=== PATIENT | male | born 1945 | race Caucasian/White ===

== ENCOUNTER 2018-10-09 12:36 | Inpatient (IN) ==
[2018-10-09 13:06] LABS: Basophils % 0.3 % (0.0-0.8); Eosinophils # 0.1 10*3/uL (0.0-0.87); Eosinophils % 1.2 % (0.00-10.9); Hematocrit 23.3 VOL% (42.0-52.0); Hemoglobin 6.6 GM/DL (14.0-18.0); Immature Granulocytes % 0.4 %; Immature Granulocytes Absolute 0.03 #; Lymphocytes # 1.2 10*3/uL (1.4-4.0); Lymphocytes % 17.7 % (21.2-54.2); Mean Corpuscular HGB Conc 28.3 GM/DL (32-36); Mean Corpuscular Volume 80.9 FL (87-102); Mean Platelet Volume 9.6 FL (9.6-12.0); Monocytes % 9.4 % (1.7-12.7); Platelet Count 194 T/CUMM (130-400); Red Blood Count 2.88 MC/CUMM (3.8-5.5); Red Cell Distribution Width 15.9 % (9.3-17.3); White Blood Count 6.9 T/CUMM (4-12)
[2018-10-09 13:26] LABS: INR 1.1; PT Patient Result 11.9 SECS
[2018-10-09 13:29] LABS: Albumin 3.2 G/DL (3.4-5.0); Bilirubin,Total 0.4 MG/DL (0.2-1.0); Calcium 9.1 MG/DL (8.5-10.1)
[2018-10-09 13:34] LABS: Anisocytosis Slight; Burr Cells Slight; Eosinophils 1 % (0-10); Hypochromasia 1+; Lymphocytes 15 % (20-55); Microcytosis Slight; Platelet Estimate Normal; Polychromasia 1+; Segmented Neutrophils 77 % (50-85); Total Cells Counted 100
[2018-10-09 14:14] LABS: % Iron Saturation 4.9 % (18-50)
[2018-10-09] MEDS ORDERED: INSULIN REGULAR 100 UNIT/ML IV STA (14:14)
[2018-10-09 14:29] LABS: Folate > 24.0 NG/ML (5.4-24.0); Vitamin B12 483 PG/ML (211-911)
[2018-10-09] MEDS ORDERED: PANTOPRAZOLE 40 MG VIAL IV STA (14:56)
[2018-10-09] MEDS ORDERED: INSULIN REGULAR 100 UNIT/ML ONE (15:01)
[2018-10-09 15:56] LABS: Apearance,Urine CLEAR (Clear); Bilirubin,Urine Negative (Negative); Blood, Urine Negative (Negative); Glucose,Urine (UA) Negative (Negative); Hyaline Casts,Urine 29 /LPF (0-3); Ketones,Urine Negative (Negative); Mucus,Urine Occasional /LPF (Occasional); Nitrite,Urine Negative (Negative); Protein,Urine Negative; RBC,Urine <1 /HPF (0-4); Squamous Epithelial Cell,Urine Occasional /HPF (0-10); Urine Color Yellow (Yellow); Urine Specific Gravity 1.011 (1.001-1.035); Urine Urobilinogen < 2.0 EU/DL (0.2-1.0); WBC,Urine 1 /HPF (0-6)
[2018-10-09] MEDS ORDERED: SODIUM CHLORIDE 0.9% 1,000 ML IV PRN (15:57)
[2018-10-09] MEDS ORDERED: guaiFENesin/DM ER 600-30 MG TABLET PO PRN (15:59)
[2018-10-09] MEDS ORDERED: ONDANSETRON 4 MG/2 ML VIAL IV PRN (15:59)
[2018-10-09] MEDS ORDERED: ACETAMINOPHEN 325 MG TABLET PO PRN (15:59)
[2018-10-09] MEDS ORDERED: PROMETHAZINE 25 MG/1 ML VIAL IM PRN (15:59)
[2018-10-09] MEDS ORDERED: ZALEPLON 5 MG CAPSULE PO PRN (15:59)
[2018-10-09] MEDS ORDERED: diphenhydrAMINE CAP 25 MG CAPSULE PO SCH (16:00)
[2018-10-09] MEDS ORDERED: FUROSEMIDE 40 MG/4 ML VIAL IV SCH (16:00)
[2018-10-09 16:27] LABS: Risk Ratio 2.08; Thyroid Stimulating Hormone 0.092 uIU/ml (0.358-3.74)
[2018-10-09] MEDS: DOCUSATE SODIUM 100 MG CAPSULE PO SCH (20:23)
[2018-10-09] MEDS ORDERED: ATORVASTATIN 80 MG TABLET PO SCH (23:45)
[2018-10-09] MEDS ORDERED: CHOLECALCIFEROL 1,000 UNIT TABLET PO SCH (23:45)
[2018-10-09] MEDS ORDERED: clonazePAM 0.5 MG TABLET PO SCH (23:45)
[2018-10-10] MEDS: rOPINIRole 0.25 MG TABLET PO SCH ×4 (00:06→22:19)
[2018-10-10 05:56] LABS: Basophils % 0.2 % (0.0-0.8); Eosinophils # 0.1 10*3/uL (0.0-0.87); Eosinophils % 1.3 % (0.00-10.9); Hemoglobin 8.1 GM/DL (14.0-18.0); Immature Granulocytes % 0.4 %; Immature Granulocytes Absolute 0.03 #; Lymphocytes # 1.8 10*3/uL (1.4-4.0); Mean Corpuscular Volume 81.1 FL (87-102); Mean Platelet Volume 10.3 FL (9.6-12.0); Monocytes % 12.5 % (1.7-12.7); Neutrophils % 64.6 % (38.7-73.9); Platelet Count 199 T/CUMM (130-400); Red Blood Count 3.33 MC/CUMM (3.8-5.5); White Blood Count 8.4 T/CUMM (4-12)
[2018-10-10 06:23] LABS: Albumin 3.6 G/DL (3.4-5.0); Bilirubin,Total 0.7 MG/DL (0.2-1.0); Calcium 8.7 MG/DL (8.5-10.1); Osmolality,Calculated 294.4 MOS/KG (273-304); Total Protein 7.2 G/DL (6.4-8.3)
[2018-10-10] MEDS ORDERED: SODIUM POLYSTYRENE SULFATE 15 GM/60 ML BOTTLE PO ONE (07:07)
[2018-10-10] MEDS ORDERED: INSULIN GLARGINE 100 UNIT/ML SUBCUT ONE (07:15)
[2018-10-10] MEDS ORDERED: INSULIN NPH 100 UNIT/ML SUBCUT ONE (07:16)
[2018-10-10] MEDS ORDERED: INSULIN NPH 100 UNIT/ML SUBCUT SCH (07:30)
[2018-10-10] MEDS: INSULIN GLARGINE 100 UNIT/ML SUBCUT SCH (08:00)
[2018-10-10] MEDS: INSULIN LISPRO 100 UNIT/ML SUBCUT SCH ×2 (08:01→16:23)
[2018-10-10] MEDS: ISOSORBIDE MONONITRATE 30 MG TABLET PO SCH (08:01)
[2018-10-10] MEDS: INSULIN REGULAR 100 UNIT/ML SUBCUT SCH ×4 (08:01→20:52)
[2018-10-10] MEDS: CHOLECALCIFEROL 1,000 UNIT TABLET PO SCH ×2 (08:02→20:53)
[2018-10-10] MEDS: LEVOTHYROXINE 125 MCG TABLET PO SCH (08:02)
[2018-10-10] MEDS: BISACODYL 5 MG TABLET PO SCH (08:03)
[2018-10-10] MEDS: OMEGA 3 ACID ETHYL ESTERS 1 GM CAPSULE PO SCH ×2 (08:03→22:19)
[2018-10-10] MEDS: DOCUSATE SODIUM 100 MG CAPSULE PO SCH ×2 (08:03→20:52)
[2018-10-10] MEDS ORDERED: SPIRONOLACTONE 25 MG TABLET PO SCH (09:00)
[2018-10-10] MEDS ORDERED: PIOGLITAZONE 30 MG PO SCH (09:00)
[2018-10-10] MEDS ORDERED: [UNRECOGNIZED DRUG - OTHER] PO SCH (09:00)
[2018-10-10] MEDS ORDERED: IRON SUCROSE 300 MG in SODIUM CHLORIDE 0.9% 100 ML IV ONE (09:00)
[2018-10-10] MEDS ORDERED: LISINOPRIL 20 MG TABLET PO SCH (09:00)
[2018-10-10] MEDS ORDERED: INSULIN GLARGINE 100 UNIT/ML SUBCUT SCH ×2 (09:00)
[2018-10-10] MEDS ORDERED: FUROSEMIDE 40 MG TABLET PO SCH (09:00)
[2018-10-10] MEDS: CARVEDILOL 25 MG TABLET PO SCH ×2 (09:13→20:52)
[2018-10-10] MEDS: MAGNESIUM CHLORIDE 64 MG TABLET PO SCH ×2 (09:13→20:52)
[2018-10-10 13:34] LABS: Calcium 8.3 MG/DL (8.5-10.1); Osmolality,Calculated 300.1 MOS/KG (273-304)
[2018-10-10] MEDS: SODIUM BICARB INJ 75 MEQ in SODIUM CHLORIDE 0.45% 1,000 ML IV SCH (15:47)
[2018-10-10] MEDS: clonazePAM 0.5 MG TABLET PO SCH (20:52)
[2018-10-10] MEDS: ATORVASTATIN 80 MG TABLET PO SCH (20:52)
[2018-10-11 05:28] LABS: Basophils % 0.3 % (0.0-0.8); Eosinophils # 0.1 10*3/uL (0.0-0.87); Eosinophils % 1.9 % (0.00-10.9); Hematocrit 24.6 VOL% (42.0-52.0); Hemoglobin 7.2 GM/DL (14.0-18.0); Immature Granulocytes % 0.6 %; Immature Granulocytes Absolute 0.04 #; Lymphocytes # 1.6 10*3/uL (1.4-4.0); Lymphocytes % 24.9 % (21.2-54.2); Mean Corpuscular HGB Conc 29.3 GM/DL (32-36); Mean Corpuscular Volume 81.2 FL (87-102); Mean Platelet Volume 9.9 FL (9.6-12.0); Monocytes % 13.5 % (1.7-12.7); Neutrophils % 58.8 % (38.7-73.9); Platelet Count 187 T/CUMM (130-400); Red Blood Count 3.03 MC/CUMM (3.8-5.5); Red Cell Distribution Width 16.3 % (9.3-17.3); White Blood Count 6.5 T/CUMM (4-12)
[2018-10-11 06:04] LABS: Albumin 3.1 G/DL (3.4-5.0); Bilirubin,Total 0.4 MG/DL (0.2-1.0); Calcium 8.4 MG/DL (8.5-10.1); Osmolality,Calculated 295.5 MOS/KG (273-304); Total Protein 6.5 G/DL (6.4-8.3)
[2018-10-11 06:24] LABS: Calcium 8.2 MG/DL (8.5-10.1); Osmolality,Calculated 291.8 MOS/KG (273-304)
[2018-10-11] MEDS: SODIUM BICARB INJ 75 MEQ in SODIUM CHLORIDE 0.45% 1,000 ML IV SCH (06:57)
[2018-10-11] MEDS: CHOLECALCIFEROL 1,000 UNIT TABLET PO SCH ×2 (08:28→20:57)
[2018-10-11] MEDS: OMEGA 3 ACID ETHYL ESTERS 1 GM CAPSULE PO SCH ×2 (08:28→20:58)
[2018-10-11] MEDS: MAGNESIUM CHLORIDE 64 MG TABLET PO SCH ×2 (08:29→20:58)
[2018-10-11] MEDS: ISOSORBIDE MONONITRATE 30 MG TABLET PO SCH (08:29)
[2018-10-11] MEDS: LEVOTHYROXINE 125 MCG TABLET PO SCH (08:29)
[2018-10-11] MEDS: INSULIN GLARGINE 100 UNIT/ML SUBCUT SCH (08:29)
[2018-10-11] MEDS: DOCUSATE SODIUM 100 MG CAPSULE PO SCH ×2 (08:29→20:58)
[2018-10-11] MEDS: INSULIN REGULAR 100 UNIT/ML SUBCUT SCH ×4 (08:29→20:51)
[2018-10-11] MEDS: CARVEDILOL 25 MG TABLET PO SCH ×2 (08:29→20:58)
[2018-10-11] MEDS: INSULIN LISPRO 100 UNIT/ML SUBCUT SCH ×2 (08:29→16:48)
[2018-10-11] MEDS: BISACODYL 5 MG TABLET PO SCH (08:31)
[2018-10-11] MEDS ORDERED: SODIUM CHLORIDE 0.9% 1,000 ML IV PRN (10:13)
[2018-10-11] MEDS ORDERED: FUROSEMIDE 40 MG/4 ML VIAL IV ONE ×2 (10:15→13:39)
[2018-10-11 10:39] LABS: Hematocrit 24.2 VOL% (42.0-52.0); Hemoglobin 7.2 GM/DL (14.0-18.0)
[2018-10-11 11:31] LABS: Free T4 (Free Thyroxine) 1.54 NG/DL (0.76-1.46)
[2018-10-11 19:15] LABS: Hematocrit 27.2 VOL% (42.0-52.0); Hemoglobin 8.2 GM/DL (14.0-18.0)
[2018-10-11] MEDS ORDERED: diphenhydrAMINE CAP 50 MG CAPSULE PO PRN (20:50)
[2018-10-11] MEDS: rOPINIRole 0.25 MG TABLET PO SCH ×3 (20:57→22:58)
[2018-10-11] MEDS: ATORVASTATIN 80 MG TABLET PO SCH (20:58)
[2018-10-11] MEDS: clonazePAM 0.5 MG TABLET PO SCH (20:58)
[2018-10-12 05:31] LABS: Basophils % 0.3 % (0.0-0.8); Eosinophils # 0.2 10*3/uL (0.0-0.87); Eosinophils % 2.5 % (0.00-10.9); Hematocrit 26.4 VOL% (42.0-52.0); Immature Granulocytes % 0.3 %; Immature Granulocytes Absolute 0.02 #; Lymphocytes # 1.6 10*3/uL (1.4-4.0); Lymphocytes % 27.5 % (21.2-54.2); Mean Corpuscular HGB Conc 30.3 GM/DL (32-36); Mean Corpuscular Volume 81.7 FL (87-102); Mean Platelet Volume 10.3 FL (9.6-12.0); Monocytes % 14.6 % (1.7-12.7); Neutrophils % 54.8 % (38.7-73.9); Platelet Count 180 T/CUMM (130-400); Red Blood Count 3.23 MC/CUMM (3.8-5.5); Red Cell Distribution Width 16.8 % (9.3-17.3)
[2018-10-12 05:54] LABS: Albumin 3.2 G/DL (3.4-5.0); Bilirubin,Total 0.6 MG/DL (0.2-1.0); Calcium 8.5 MG/DL (8.5-10.1); Osmolality,Calculated 290.5 MOS/KG (273-304); Total Protein 6.4 G/DL (6.4-8.3)
[2018-10-12] MEDS: INSULIN LISPRO 100 UNIT/ML SUBCUT SCH ×2 (08:38→16:25)
[2018-10-12] MEDS: INSULIN REGULAR 100 UNIT/ML SUBCUT SCH ×4 (08:38→21:43)
[2018-10-12] MEDS: LEVOTHYROXINE 100 MCG TABLET PO SCH ×2 (08:38→12:45)
[2018-10-12] MEDS: ISOSORBIDE MONONITRATE 30 MG TABLET PO SCH ×2 (09:29→12:45)
[2018-10-12] MEDS: BISACODYL 5 MG TABLET PO SCH (09:29)
[2018-10-12] MEDS: OMEGA 3 ACID ETHYL ESTERS 1 GM CAPSULE PO SCH ×3 (09:29→21:43)
[2018-10-12] MEDS: CARVEDILOL 25 MG TABLET PO SCH ×3 (09:29→21:42)
[2018-10-12] MEDS: DOCUSATE SODIUM 100 MG CAPSULE PO SCH ×2 (09:29→21:42)
[2018-10-12] MEDS: INSULIN GLARGINE 100 UNIT/ML SUBCUT SCH (09:29)
[2018-10-12] MEDS: CHOLECALCIFEROL 1,000 UNIT TABLET PO SCH ×3 (09:30→21:44)
[2018-10-12] MEDS: MAGNESIUM CHLORIDE 64 MG TABLET PO SCH ×3 (09:30→21:44)
[2018-10-12] MEDS ORDERED: PROPOFOL 200 MG/20 ML VIAL IV ONE (10:00)
[2018-10-12] MEDS ORDERED: LIDOCAINE 100 MG/5 ML SYRINGE ONE (10:00)
[2018-10-12] MEDS ORDERED: SODIUM CHLORIDE 0.9% 1,000 ML IV PRN (12:14)
[2018-10-12] MEDS ORDERED: PANTOPRAZOLE 40 MG TABLET PO SCH (21:00)
[2018-10-12] MEDS: clonazePAM 0.5 MG TABLET PO SCH (21:43)
[2018-10-12] MEDS: rOPINIRole 0.25 MG TABLET PO SCH ×3 (21:43→21:44)
[2018-10-12] MEDS: ATORVASTATIN 80 MG TABLET PO SCH (21:43)
[2018-10-12 21:51] VITALS: BP 114/57
== END 2018-10-12 20:47 | disposition home or self-care (01) | DRG 813 ==
LOC: N.ED 12:36 → N.EDINP 15:59 → SUATTDRO 15:59 → N.5E 17:06
PROVIDERS: ADMIT Internal Medicine; ATTEND Internal Medicine